=== PATIENT | male | born 2000 | race Caucasian/White ===

== ENCOUNTER 2022-12-24 14:31 | Emergency (ER) | payer MEDICAID, SELFPAY ==
--- NOTE | ~2022-12-24 | XR_ITS ---
EXAMINATION: XR CHEST CLINICAL INFORMATION: Substernal chest pain COMPARISON: None available. TECHNIQUE: 2 views of the chest were obtained. FINDINGS: No significant abnormality is noted involving the heart, lungs, mediastinum, bony thorax or soft tissues. XR/XR chest 2V IMPRESSION: Unremarkable examination.
--- NOTE | 2022-12-24 14:33 | ECG_ITS ---
Test Reason : cp Blood Pressure : / mmHG Vent. Rate : 078 BPM Atrial Rate : 078 BPM P-R Int : 118 ms QRS Dur : 082 ms QT Int : 360 ms P-R-T Axes : 069 078 047 degrees QTc Int : 410 ms Normal sinus rhythm with sinus arrhythmia RSR' or QR pattern in V1 suggests right ventricular conduction delay Nonspecific T wave abnormality Inferior leads Abnormal ECG No previous ECGs available Referred By: Generic ED Physician Electronically Signed By:SYLVAIN ANN MD
[2022-12-24 15:10] VITALS: BP 139/76; PULSE 78; RESP 16; TEMP 37.3; O2SAT 98; BMI 19.5
--- NOTE | 2022-12-24 15:10 | ED_ITS ---
HPI - Chest Pain General Chief Complaint: Chest Pain Stated Complaint: Chest pain Time Seen by Provider: 12/24/22 15:43 Source: patient Mode of arrival: ambulatory Limitations: no limitations History of Present Illness HPI narrative: a 22-year-old male no past significant history came in for evaluation of chest pain. Patient been getting chest pain for a year on and off, patient was treated for anxiety by PCP discontinued Taking the anxiety medication because is not helping his chest pain patient had his typical chest pain this morning went to urgent care sent him to the ED for concern of abnormal EKG. Patient declined any recent travel, no lower extremity swelling or pain. Patient only smoking E-cigarette and marijuana occasionally otherwise declined using any drugs. Related Data Previous Rx's Medication Instructions Recorded levothyroxine 13 mcg capsule 13 mcg PO DAILY #20 caps 12/24/22 Allergies Allergy/AdvReac Type Severity Reaction Status Date / Time cephalexin [From KEFLEX] Allergy Unknown RASH Verified 12/24/22 15:14 Review of Systems 2 Review of Systems: All other systems are reviewed and are negative Constitutional: Reports as per HPI and Reports no additional constitutional complaints Eyes: Reports as per HPI and Reports no additional eye complaints Reports system reviewed and no additional complaints, except as documented Cardiovascular: Reports as per HPI and Reports no additional cardiovascular complaints Respiratory: Reports as per HPI and Reports no additional respiratory complaints Gastrointestinal: Reports as per HPI and Reports no additional gastrointestinal complaints Genitourinary: Reports no additional female genitourinary complaints Musculoskeletal: Reports no additional musculoskeletal complaints Skin/Breast: Reports system reviewed and no additional complaints, except as docu Psychiatric: Reports no additional psychiatric complaints Endocrine: Reports no additional endocrine complaints Hematologic/Lymphatic: Reports no additional hematologic/lymphatic complaints Allergic/Immunologic: Reports no additional allergic/immunologic complaints Reports system reviewed and no additional complaints, except as documented and Reports Abnormal speech present [facility] Social History Social History Advance Directives: No Advance Directives Information Provided: No Physical Exam 2 Vital Signs: Vital Signs: Last Vital Signs Temp 98.4 F 12/24/22 16:20 Pulse 63 12/24/22 16:20 Resp 13 12/24/22 16:20 BP 115/70 12/24/22 16:20 Pulse Ox 97 12/24/22 16:20 O2 Del Method Room Air 12/24/22 16:20 BMI result Body Mass Index 19.5 Vital signs have been reviewed and appear to be correct. Blood pressure elevated. Heart rate normal. Respiratory rate normal. Temperature normal. Oxygen saturation normal. Appearance: Alert. Oriented X3. No acute distress. Head: Normal external exam. Normocephalic. Atraumatic. No Hinton signs noted. No raccoon eyes noted Eyes: PERRLA. EOMI. Conjunctiva and sclera normal. Eyelids normal. ENT: TM's Normal. Pharynx normal. Uvula midline. Moist mucous membranes. No trismus noted. No drooling noted. No muffled voice noted. Neck: Normal inspection. Neck supple. FROM. No adenopathy. Thyroid Normal. No meningeal signs. No neck mass noted. CVS: Normal heart rate and rhythm. Heart sound normal. No murmurs noted. Pulses normal throughout. Respiratory: No respiratory distress. Painless inspiration. Breath sounds normal. No wheezes/rales/rhonchi noted. Chest nontender. No accessory muscle usage noted or decreased air movement noted. Abdomen: Soft and nontender. Bowel sounds normal in all 4 quadrants. No distention noted. No organomegaly noted. No visible injury noted. Back: No CVA tenderness. Full range of motion noted. Skin: Skin warm and dry. Normal skin color. Normal skin turgor. No rashes/lesions/lacerations noted. Extremities: No lower extremity edema. Extremities exhibit normal range of motion. Extremities nontender. Neuro: Oriented X 3. Cranial nerve exam: II-XII are grossly intact No motor deficit. No sensory deficit. Reflexes normal. Course Course Course Narrative: RME: 22yo M w/no sig PMHx c/o chest pain x1 year worsening over the past few months. Admits to similar sx in the past and was thought to be due to Anxiety but was taking meds w/o relief (stopped taking meds about 1.5mos ago). Reports fatigue & substernal chest soreness. Also reports SOB. deneis fever, travel EKG, Labs, CXR ordered Full HPI, ROS and PE to be performed by primary ED provider. Reevaluation(s) Reevaluation #1: 22-year-old male with Chronic chest pain on and off has been evaluated in the past by PCP for this pain. Patient has unremarkable workup today. I will discharge with outpatient follow-up with Dr. Eckert for further evaluation of the chest pain. Elevated TSH and low free T4 indicating for hypothyroidism will start the patient levothyroxine and patient was instructed to follow-up with his PCP. Time: 18:02 Medical Decision Making Differential Diagnosis Differential Diagnoses: The differential diagnosis associated with the presentation includes ( ACS, pneumonia, pneumothorax, pleural effusion, electrolyte abnormality, pulmonary embolism, severe anemia.) Admission/Observation Consideration of admission/observation: Escalation of care including admission/observation considered Lab Data MDM Lab Attestation statement: I reviewed the patient's lab results. 12/24/22 15:29 12/24/22 15:29 Labs: Lab Results 12/24/22 12/24/22 Range/Units 15:29 16:11 WBC 5.2 (4.8-10.8) X10*3/uL RBC 5.25 (4.60-5.80) X10*6/uL Hgb 15.7 (14.0-18.0) g/dl Hct 47.2 (42.0-52.0) % MCV 89.9 (80.0-98.0) fL MCH 29.9 (27.0-33.0) pg MCHC 33.3 (31.0-36.0) g/dl RDW 12.5 (11.0-16.0) % Plt Count 242 (160-400) X10*3/uL MPV 9.0 L (9.4-12.4) fL Immature Gran % (Auto) 0.2 (0.0-0.4) % Neut % (Auto) 57.9 (45-73) % Lymph % (Auto) 33.3 (20-40) % Donley % (Auto) 7.4 (2-11) % Eos % (Auto) 0.4 (0-4) % Baso % (Auto) 0.8 (0-2) % Lymph # (Auto) 1.7 (1.2-4.9) X10*3/uL Donley # (Auto) 0.4 (0.1-1.2) X10*3/uL Eos # (Auto) 0.0 (0.0-0.4) X10*3/uL Baso # (Auto) 0.0 (0.0-0.2) X10*3/uL Abs Immat Gran (auto) 0.01 (0.00-0.03) X10*3/uL Absolute Neuts (auto) 3.0 (2.0-8.3) x10*3/uL Absolute Nucleated RBC 0.000 (0.0-0.012) X10*3/uL Nucleated RBC % (auto) 0.0 (0.0-0.2) /100WBC D-Dimer High Sensitivty < 150 NG/ML Sodium 143 (135-145) mmol/L Potassium 4.3 (3.3-5.1) mmol/L Chloride 104 (96-108) mmol/L Carbon Dioxide 33 H (22-29) mmol/L Anion Gap 10 L (12-20) BUN 9 (9-16) mg/dL Creatinine 0.84 (0.5-1.4) mg/dL Estim Creat Clear Calc 117.0 Estimated GFR > 60 Random Glucose 105 (60-115) mg/dL Calcium 10.4 H (8.4-10.2) mg/dL Total Bilirubin 0.6 (0.0-1.0) mg/dL Direct Bilirubin 0.2 (0.0-0.5) mg/dL AST 21 (5-37) U/L ALT 11 (0-40) U/L Alkaline Phosphatase 55 (39-117) U/L Troponin I High Sens < 2.7 < 2.7 (<3.5-35.0) ng/L Total Protein 7.5 (6.5-8.0) g/dL Albumin 4.9 (3.5-5.0) g/dL TSH 34.71 H (0.32-4.0) uIU/mL Free T4 0.64 L (0.71-1.85) ng/dL COVID-19 (MELISSA) Negative (Negative) COVID-19 Clin Com See Note Influenza Type A (REFUGIO) Negative (Negative) Influenza Type B (REFUGIO) Negative (Negative) Influenza A & B Note See Note Independent Interpretation I performed an independent interpretation of an: EKG ( Normal sinus rhythm with sinus arrhythmia at rate of 78, normal intervals, no ST-T changes.) and Plain X- Ray ( Chest: No acute intrathoracic pathology.) Radiology Impression Discussion of test interpretation with radiology: I have reviewed the radiologist's reading. Discharge Plan Discharge Clinical Impression: Chest pain, Hypothyroidism Patient Disposition: Home, Self-Care Instructions: Chest Pain (ED), Hypothyroidism (ED) Prescriptions: New levothyroxine 13 mcg capsule 13 mcg PO DAILY Qty: 20 0RF Referrals: Rafi Eckert MD [Physician] -
[2022-12-24 15:35] LABS: MANUAL DIFF FLAG NO
[2022-12-24 15:38] VITALS: BP 136/81; PULSE 77; RESP 16; O2SAT 98
[2022-12-24 15:38] LABS: Basophils Percent Auto 0.8 % (0-2); Eosinophils Percent Auto 0.4 % (0-4); Hematocrit 47.2 % (42.0-52.0); Hemoglobin 15.7 g/dl (14.0-18.0); Imm Gran Abs Auto 0.01 X10*3/uL (0.00-0.03); Imm Gran Pct Auto 0.2 % (0.0-0.4); Lymphocytes Absolute Auto 1.7 X10*3/uL (1.2-4.9); Lymphocytes Percent Auto 33.3 % (20-40); Mean Corpuscular HGB Conc 33.3 g/dl (31.0-36.0); Mean Corpuscular Hemoglobin 29.9 pg (27.0-33.0); Mean Corpuscular Volume 89.9 fL (80.0-98.0); Monocytes Absolute Auto 0.4 X10*3/uL (0.1-1.2); Monocytes Percent Auto 7.4 % (2-11); Neutrophils Percent Auto 57.9 % (45-73); Platelet Count 242 X10*3/uL (160-400); Red Blood Count 5.25 X10*6/uL (4.60-5.80); Red Cell Distribution Width 12.5 % (11.0-16.0); White Blood Count 5.2 X10*3/uL (4.8-10.8)
[2022-12-24 15:50] LABS: Alanine Aminotransferase 11 U/L (0-40); Albumin Level 4.9 g/dL (3.5-5.0); Alkaline Phosphatase 55 U/L (39-117); Anion Gap 10 (12-20); Aspartate Amino Transferase 21 U/L (5-37); Bilirubin Direct 0.2 mg/dL (0.0-0.5); Bilirubin Total 0.6 mg/dL (0.0-1.0); Blood Urea Nitrogen 9 mg/dL (9-16); Calcium 10.4 mg/dL (8.4-10.2); Carbon Dioxide 33 mmol/L (22-29); Chloride 104 mmol/L (96-108); Estimated Glomerular Filt Rate > 60; Glucose Random 105 mg/dL (60-115); Potassium 4.3 mmol/L (3.3-5.1); Sodium 143 mmol/L (135-145); Total Protein 7.5 g/dL (6.5-8.0)
[2022-12-24 15:54] LABS: COVID-19 Test Negative (Negative); IDNOW Serial# 58CA691E
[2022-12-24 16:01] LABS: Troponin-I High Sensitivity < 2.7 ng/L (<3.5-35.0)
[2022-12-24 16:08] LABS: IDNOW Serial# 08D9AD1C; Influenza A Negative (Negative); Influenza B2 Negative (Negative)
[2022-12-24 16:11] LABS: TSH reflex Free T4 34.71 uIU/mL (0.32-4.0)
--- NOTE | 2022-12-24 16:12 | PC.NURSE ---
NSR on tele, reports minimal discomfort now, CP usually upon waking up each morning that makes it difficult to get up x1 year. add on labs drawn and sent to lab. \ XR complete, EKG complete
[2022-12-24 16:20] VITALS: BP 115/70; PULSE 63; RESP 13; TEMP 36.9; O2SAT 97
[2022-12-24 16:39] LABS: Troponin-I High Sensitivity < 2.7 ng/L (<3.5-35.0)
[2022-12-24 16:41] LABS: D Dimer High Sensitivity < 150 NG/ML
[2022-12-24 17:03] LABS: Free T4 (Free Thyroxine) 0.64 ng/dL (0.71-1.85)
== END 2022-12-24 17:33 | disposition home or self-care (01) ==
PROVIDERS: Physician Assistant; Emergency Provider Emergency Medicine; PCP Pediatrics
DX: R07.89 Other chest pain (principal); E03.9 Hypothyroidism, unspecified; Z79.899 Other long term (current) drug therapy; Z11.52 Encounter for screening for COVID-19; Z20.822 Contact with and (suspected) exposure to COVID-19
CPT/HCPCS: 36415; 71046; 80048; 80076; 84439; 84443; 84484; 85025; 85379; 87502; 87635; 93005; 99283; 99285

== ENCOUNTER 2023-01-06 12:51 | Outpatient (AMB) | payer MEDICAID, SELFPAY ==
[2023-01-06 12:54] VITALS: BP 130/76; PULSE 65; BMI 20.1
--- NOTE | 2023-01-06 12:54 | A.OFFVIS_ITS ---
Intake Vital Signs 01/06/23 12:54 Height 5 ft 9 in Weight 136 lb 3.931 oz BMI 20.1 BP 130/76 Blood Pressure Location Lt brachial Position Sitting Pulse 65 Pulse Source Pulse Oximeter Intake Visit Reasons: [facility] ed fu/ chest pain Intake Note: Ed fu/ actively having chest pain Assembly Lead Person Required: No Information Interpreted: non-clinical & clinical Accompanied by: Self / Same As Patient Allergies cephalexin [From KEFLEX] Allergy (Unknown, Verified 01/06/23 12:57) RASH Medication List - Last Reconciled 01/06/23 by Chantal Vang NP levothyroxine 12.5 mcg (1/2 x 25 mcg) PO DAILY 20 days HPI HPI Comments History of Present Illness Details 22-year-old male presents today for a ne w patient visit after presenting to the [facility] emergency department on 12/24/22 for chest pain/abnormal EKG. Reports chest pain has been for the last year but worsening the last few months. Work-up in the ED was unremarkable for cardiac concerns. He was found to have hypothyroid and was started on levothyroxine. Past medical history of anxiety and asthma. He reports the chest pain is a pressure and is daily. Worse in the morning with SOB. The pain is in the center of his chest and does not radiate. It worsens with lifting but not with exertion. Denies swelling in his legs or any other associated symptoms with the chest pain. He reports no cardiac history for himself other than palpitations which was ruled to be anxiety in the past. [facility] Social History (Updated 01/06/23 @ 12:59 by Justine Arguelles MA) Alcohol intake: current Alcohol intake frequency: holidays/special occasions only Substance Use Type: Marijuana Review of Systems Const Denies chills, Denies fatigue, Denies fever(s), Denies frequent falls, Denies weakness, Denies weight gain and Denies weight loss ENT Denies dizziness Card Denies chest pain, Denies chest pain with activity, Denies syncope, Denies rapid heart rate, Denies pedal edema, Denies irregular heart rhythm, Denies leg edema, Denies lightheadedness, Denies palpitations, Denies dyspnea, Denies dyspnea on exertion, Denies orthopnea and Denies other (LOC) Resp Denies cough, Denies dyspnea and Denies dyspnea on exertion GI Denies hematochezia and Denies change in bowel habits Musc Denies abnormal gait, Denies arthralgias, Denies muscle weakness, Denies numbness, Denies radiating pain into limb and Denies tingling Neuro Denies abnormal gait, Denies dizziness, Denies syncope, Denies frequent falls, Denies numbness, Denies tingling and Denies weakness Endo Denies fatigue and Denies palpitations Physical Exam Vital Signs: Last Vital Signs Pulse 65 01/06/23 12:54 BP 130/76 01/06/23 12:54 BMI result Body Mass Index 20.1 Const General: healthy appearing and no acute distress Orientation/consciousness: patient oriented x3 HEENT Head: Yes normal to inspection Eyes General: appearance normal, both eyes and all related structures Neck Neck: Yes normal visual inspection Chest Chest palpation & inspection: normal inspection of the chest Resp Effort & Inspection: normal respiratory effort Auscultation: clear to auscultation bilaterally Cardio Jugular venous distension: no JVD Palpation: normal PMI Rate: regular rate Rhythm: regular rhythm Heart sounds: S1 normal heart sound present, S2 normal heart sound present, no click, no gallops, no murmurs and no rubs GI Inspection: Yes normal to inspection Palpation (GI): Soft to palpation Skin General skin exam: no rashes or lesions noted Neuro General: patient oriented x3 Extrem General: Yes normal to inspection Psych Appearance: grossly normal Office Procedures EKG Details: EKG today. Normal Sinus Rhythm. Early repolarization. QTc 398ms. VA 122ms. [id number], Complete Assessment & Plan Assessment & Plan (1) Chest pain: Code(s): R07.9 - Chest pain, unspecified Plan Will get exercise stress test to assess for ischemic changes. ED care if needed Will have him return in 6-8 weeks for results and to meet with Babar Romo. Orders: Orders CA stress test Today R07.9 - Chest pain, unspecified Coding Level of Care Code New Pt Level 3 (66606) Diagnoses Chest pain R07.9 CPT Codes EKG - CPT: 21351-[id number], Complete ([id number])
== END 2023-01-06 13:22 | disposition home or self-care (01) ==
PROVIDERS: PCP Pediatrics; Visit Provider Nurse Practitioner
DX: R07.9 Chest pain, unspecified (principal)
CPT/HCPCS: 93010; 99203

== ENCOUNTER → 2023-01-06 12:51 | Outpatient (BNVA) | payer MEDICAID, SELFPAY | PROVIDERS: PCP Pediatrics; Visit Provider Nurse Practitioner | DX: R07.9 Chest pain, unspecified (principal) | CPT/HCPCS: 93005; 99212 ==

== ENCOUNTER → 2023-01-23 10:26 | Outpatient (REF) | payer MEDICAID, SELFPAY ==
--- NOTE | 2023-01-23 10:28 | CA_ITS ---
Acquisition Time: 2023-01-23 10:33:12 Total Exercise Time: 00:12:22 Test Indications: ABN EKG, CP, SOB Medications: SEE H Protocol: ALESHA Max HR: 181 BPM 91% of Pred: 198 BPM Max BP: 158/070 mmHG Max Work Load: 14.0 METS Exercise stress test exercise 12 min 22 sec of Alesha protocol achieving 91% MPHR, without anginal symptoms, with isolated PACs, with normotensive response to exercise, without EKG changes. Test reviewed with Dr. Patton. Referred By: Chantal Vang Overread By: Chantal Vang
== END ==
LOC: HO.CARD 10:26
PROVIDERS: PCP Pediatrics; Visit Provider Nurse Practitioner
DX: R07.9 Chest pain, unspecified (principal)
CPT/HCPCS: 93017

== ENCOUNTER 2023-01-27 11:47 | Outpatient (REF) | payer MEDICAID, SELFPAY ==
[2023-01-27 15:20] LABS: TSH reflex Free T4 15.49 uIU/mL (0.32-4.0)
== END 2023-01-27 11:48 | disposition home or self-care (01) ==
LOC: HO.CHCLDS 11:47
PROVIDERS: Visit Provider Pediatrics
DX: E03.9 Hypothyroidism, unspecified (principal)
CPT/HCPCS: 36415; 84439; 84443

== ENCOUNTER 2023-06-01 14:06 | Outpatient (REF) | payer MEDICAID, SELFPAY ==
[2023-06-01 17:06] LABS: TSH reflex Free T4 2.53 uIU/mL (0.32-4.0)
== END 2023-06-01 14:07 | disposition home or self-care (01) ==
LOC: HO.HHCL 14:06
PROVIDERS: Visit Provider Student in an Organized Health Care Education/Training Program
DX: E03.9 Hypothyroidism, unspecified (principal)
CPT/HCPCS: 36415; 84443

== ENCOUNTER 2023-06-16 12:01 | Outpatient (REF) | payer MEDICAID, SELFPAY ==
[2023-06-16 15:19] LABS: TSH reflex Free T4 5.69 uIU/mL (0.32-4.0)
[2023-06-16 15:50] LABS: Free T4 (Free Thyroxine) 0.97 ng/dL (0.71-1.85)
[2023-06-16 16:19] LABS: CT PCR NOT DETECTED (Not Detect.); NG PCR NOT DETECTED (Not Detect.)
[2023-06-17 04:23] LABS: HIV AB/AG Nonreactive (Nonreactive); HIV Num 1 0.04 S/CO (0.00-0.99); ~HepC Num1 0.08 S/CO (0.00-0.79); ~Hepatitis C Antibody Nonreactive (Nonreactive)
[2023-06-17 11:14] LABS: RPR Rapid Plasma Reagin NON-REACTIVE (NON-REACTIVE)
== END 2023-06-16 12:02 | disposition home or self-care (01) ==
LOC: HO.CHCLDS 12:01
PROVIDERS: Visit Provider Pediatrics
DX: Z00.00 Encounter for general adult medical examination without abnormal findings (principal); Z11.4 Encounter for screening for human immunodeficiency virus [HIV]; E03.9 Hypothyroidism, unspecified
CPT/HCPCS: 0353U; 36415; 84439; 84443; 86592; 86803; 87389

== ENCOUNTER 2024-01-28 14:38 | Outpatient (REF) | payer MEDICAID, SELFPAY ==
[2024-01-28 18:08] LABS: TSH reflex Free T4 4.44 uIU/mL (0.32-4.0)
[2024-01-28 18:44] LABS: Free T4 (Free Thyroxine) 1.13 ng/dL (0.71-1.85)
== END 2024-01-28 14:39 | disposition home or self-care (01) ==
LOC: HO.CHCLDS 14:38
PROVIDERS: Visit Provider Pediatrics
DX: E03.9 Hypothyroidism, unspecified (principal)
CPT/HCPCS: 36415; 84439; 84443

== ENCOUNTER → 2024-02-11 10:08 | Outpatient (BNVA) | payer OTHER, SELFPAY | PROVIDERS: PCP Pediatrics; Visit Provider Physician Assistant Medical | DX: S93.402A Sprain of unspecified ligament of left ankle, initial encounter (principal); W18.09XA Striking against other object with subsequent fall, initial encounter | CPT/HCPCS: 73610; 99203 ==

== ENCOUNTER → 2024-02-15 11:39 | Outpatient (BNVA) | payer OTHER, SELFPAY | PROVIDERS: PCP Pediatrics; Visit Provider Physician Assistant Medical | DX: S93.492A Sprain of other ligament of left ankle, initial encounter (principal); W18.09XA Striking against other object with subsequent fall, initial encounter | CPT/HCPCS: 99213 ==

== ENCOUNTER → 2024-02-23 11:04 | Outpatient (BNVA) | payer OTHER, SELFPAY | PROVIDERS: PCP Pediatrics; Visit Provider Physician Assistant Medical | DX: S93.402A Sprain of unspecified ligament of left ankle, initial encounter (principal); W01.0XXA Fall on same level from slipping, tripping and stumbling without subsequent striking against object, initial encounter | CPT/HCPCS: 99213 ==

== ENCOUNTER 2024-02-29 11:00 | Outpatient (RCR) | payer OTHER, MEDICAID, SELFPAY ==
--- NOTE | 2024-02-26 09:51 | MHC.PT.EP ---
[facility] [place] Office [place] Office [place] Office [address] Zahida Samuels [address] [phone] F: [phone] F: [phone] F: [phone] F: [phone] Physical Therapy Plan of Care Date of Evaluation: 02/26/24 Date of Surgery: Diagnosis: L ankle sprain. Assessment: Patient is a 23 year old R handed male who presents with s/s consistent with L ankle sprain, pain. He works with daily job demands including [employer]. Patient past medical history is unremarkable and non-contributory. Current impairments include pain, balance, ROM, strength, activity tolerance and functional mobility. Functional limitations include decreased ability to stand, walk, negotiate stairs, pivot and turn. Patient is motivated with good rehab potential. Skilled PT will address impairments and functional limitations in order to achieve goals. 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 Manual therapy to restore motion and function. Therapeutic exercise to improve strength and flexibility. Neuromuscular re-education for posture and balance. Therapeutic activities to return to functional activities of daily living. Electronically signed by: Ming Valentino, PT Please sign and return to therapist. Thank you for your referral.
--- NOTE | 2024-03-23 13:58 | MHC.PT.DC ---
[facility] [place] [facility] [place] Office [place] Office [address] [phone] F: [phone] F: [phone] F: [phone] F: [phone] Physical Therapy Discharge Report Diagnosis: L ankle sprain. Date of Surgery: Date of Evaluation: 02/26/24 Date of Discharge: 03/03/24 Treatments to Date: 2 Cancellations to Date: No Shows to Date: Discharge Status: Improved Function Independent with HEP Discharge Summary: Pt called back to say he was doing well and would like to d/c. 02/29/24: pt progressing well with skilled PT. continue to progress as tolerated with flex, ROM, strength and function. Patient is a 23 year old R handed male who presents with s/s consistent with L ankle sprain, pain. He works with daily job demands including [employer]. Patient past medical history is unremarkable and non-contributory. Current impairments include pain, balance, ROM, strength, activity tolerance and functional mobility. Functional limitations include decreased ability to stand, walk, negotiate stairs, pivot and turn. Patient is motivated with good rehab potential. Skilled PT will address impairments and functional limitations in order to achieve goals. Electronically signed by: Ming Valentino, PT Please sign and return to therapist. Thank you for your referral.
== END 2024-03-23 13:59 | disposition home or self-care (01) ==
LOC: HO.PTCHIC 11:00
PROVIDERS: PCP Pediatrics; Visit Provider Physician Assistant Medical
DX: S93.402A Sprain of unspecified ligament of left ankle, initial encounter (principal)
CPT/HCPCS: 97110; 97112; 97161

== ENCOUNTER → 2024-03-03 11:18 | Outpatient (BNVA) | payer OTHER, SELFPAY | PROVIDERS: PCP Pediatrics; Visit Provider Physician Assistant Medical | DX: S93.402A Sprain of unspecified ligament of left ankle, initial encounter (principal); W18.09XA Striking against other object with subsequent fall, initial encounter; Z02.79 Encounter for issue of other medical certificate | CPT/HCPCS: 99213 ==

== ENCOUNTER 2024-04-21 11:54 | Outpatient (REF) | payer OTHER, SELFPAY ==
[2024-04-21 15:08] LABS: TSH reflex Free T4 7.85 uIU/mL (0.32-4.0)
--- OUTSIDE RECORDS SUMMARY | 2024-04-21 15:24 | XMS_ITS | Encounter Summary ---
Author Organization [employer] Address [address] [facility] 7 [place] [address] Care Team Providers Care Steel Hanger Name Role Phone Magalys Frankel MD Primary Care Provider [phone] Reason for Visit * Reason Onset Date Comments Nurse Triage 04/21/2024 Encounter Details Date Type Department Care Team ([facility] st Contact Info) Description 04/21/2024 Telephone [facility] [address] [place] [address] Magalys Frankel MD [address] [place], [place] [id number] Nurse Triage Social History Tobacco Use Types Packs/Day Years Used Date Smoking Tobacco: Never Passive Smoke Exposure: Never Smokeless Tobacco: Never Depression Answer Date Recorded Patient Health Questionnaire-9 Score 1 03/13/2022 Housing Stability Answer Date Recorded What is your housing situation today? I have chris monzon 12/15/[address] you li ve. Do you have problems with any of the following? None of the above 12/15/2022 Food Insecurity Answer Date Recorded Within the past 12 months, y ou worried that your food would run out before you got money to buy more: Never True 12/15/2022 Within the past 12 months,th e food you bought just didn't last and you didn't have enough money to get more: Never True 07/2022 Transportation Answer Date Recorded In the past 12 months, has l ack of transportation kept you from medical appts, meetings, work or from getting things needed for daily living? No 12/15/2022 Utilities Answer Date Recorded In the past 12 months, has t he [employer], [employer], oil or water [email or web address] threatened to shut off services in your home? No 12/15/2022 Depression Answer Date Recorded Patient Health Questionnaire-2 Score 0 03/13/2022 Sex and Gender Information Value Date Recorded Sex Assigned at Male 12/09/2021 10:16 AM EDT Legal Sex Male 10:16 AM EDT Gender Identity Male 12/09/2021 10:16 AM EDT Sexual Orientation Straight 12/09/2021 10 :16 AM EDT documented as of this encounter Miscellaneous Notes * Telephone Encounter - Shelbi Persaud LPN - 04/21/2024 10:47 AM EDT Triage call returned to patient who reports worsening fatigue over last several days. Leaves work and goes home straight to bed. Out of character per patient. Patient made aware of labs ordered to follow in February for hypothyroid. Reports med compliant. Will come today to obtain updated labs. No other reported sick symptoms. Disposition reviewed and patient in agreement with plan. Protocol Used: Weakness (Generalized) and Fatigue (Adult) Protocol-Based Disposition: See in Office or Video Visit within 3 Days Override (Final) Disposition: Home Care Override Reason: Other Override Notes: Will obtain outstanding labs with MD to follow with him when labs posted. Video visit not offered Positive Triage Question: * Fatigue (i.e., tires easily, decreased energy) and persists > 1 week * All higher-acuity triage questions were negative * Telephone Encounter - Clarisa Wallis - 04/21/2024 10:39 AM EDT Symptom: Lethargic (Tired) Outcome: Schedule an urgent appointment (within 4 hours) or talk to a nurse or provider soon Reason: Getting worse The caller accepted this outcome. [phone] documented in this encounter Plan of Treatment Not on file documented as of this encounter Visit Diagnoses Not on filedocumented in this encounter Additional Health Concerns Assessment Noted Time PHQ-9 Depression Total Score: 1 02/02/20 23 10:28 AM EST documented as of this encounter Care Teams Steel Hanger Relationship Specialty Start Date End Date Magalys Frankel MD [address] [place] [id number] PCP - General Family Medicine 02/16/13 documented as of this encounter
--- OUTSIDE RECORDS SUMMARY | 2024-04-21 15:24 | XMS_ITS | Encounter Summary ---
Author Organization [employer] Address [address] [facility] [address] [place] [address] Care Team Providers Care Director [employer] Name Role Phone Magalys Frankel MD Primary Care Provider [phone] Encounter Details Date Type Department Care Team ([facility] st Contact Info) Description 12/25/2022 Telephone [facility] MED & PEDS [address] [place], [place] [id number] Mari Brooks, KIRK [address] [place] [address] Social History Tobacco Use Types Packs/Day Years Used Date Smoking Tobacco: Never Smokeless Tobacco: Never Depression Answer Date [...] the past 12 months, has t he electric, gas, oil or water company threatened to shut off services in your [...] encounter Miscellaneous Notes * Telephone Encounter - Mari Brooks RN - 12/25/2022 2:11 PM EST called pt to triage, spoke to pt. pt states seen [facility] on 12/24 and diagnosed with hypothyroid. ptstates given Levothyroxine prescription, however his insurance denied and needs a prior authorization. pt states intermittent chest discomfort, cold intolerance, and a lot of fatigue. pt denies current severe symptoms. given first available appt with PCP on Saturday 12/30, at 11:15 for exam and follow up. will task to clinical coordinator pool to obtain ER records. will also task to team nurses tofollow up with PCP for prior authorization before appt if possible. advised home care: rest, fluids, good nutrition, and call back if worsening or new concerns. pt understands and agrees with plan. in surance verified. Protocol Used: Weakness (Generalized) and Fatigue (Adult) Protocol-Based Disposition: See in Office or Video Visit within 3 Days Video visit offer not recorded Positive Triage Question: * Fatigue (i.e., tires easily, decreased energy) and persists > 1 week * All higher-acuity triage questions were negative Care Advice Discussed: * Reassurance and Education - Mild Fatigue or Weakness * Reasons To Call Back - You become worse * Telephone Encounter - Curtis Sanchez - 12/25/2022 1:55 PM EST Tc from pt returning call. Please contact at [phone] * Telephone Encounter - Mari Brooks RN - 12/25/2022 9:46 AM EST Called pt to triage for ER follow up for Hyperthroidism, unable to reach x2. Will task to [facility] team to follow up and schedule with PCP as needed. documented in this encounter Plan of Treatment Not on file documented as of this encounter Visit Diagnoses Not on filedocumented in this encounter Additional Health Concerns Assessment Noted Time PHQ-9 Depression Total Score: 1 03/13/19 10:28 AM EST documented as of this encounter Care Teams Director [employer]gen Storage Engineering Relationship Specialty Start Date End Date Magalys Frankel MD [address] [place] [id number] PCP - General Family Medicine 02/16/13 documented as of this encounter
--- OUTSIDE RECORDS SUMMARY | 2024-04-21 15:24 | XMS_ITS | Clinical Summary ---
Author Organization [employer] Address [address] [place] [address] 7 [place] [address] Care Team Providers Care Dredge Runner Name Role Phone Magalys Frankel MD Primary Care Provider [phone] Allergies Active Allergy Reactions Criticality Noted Date Comments Cephalexin Rash Low 10/27/2011 Medications hydrOXYzine pamoate (Vistaril) 25 MG capsule Take 1 capsule orally tid prn anxiety 30 capsule 3 4 Active levothyroxine (Synthroid, Levoxyl) 25 MCG tabletIndication s:Hypothyroidism , unspecified type TAKE 1 TABLET BY MOUTH EVERY DAY IN THE MORNING BEFORE BREAKFAST ON AN EMPTY STOMACH. 90 tablet 5 Active Active Problems Problem Noted Date Diagnosed Date Adjustment disorder with anxious mood 09/26/2020 Encounters Date Type Department Care Team Description 04/21/2024 Telephone [facility] [address] [place] [phone] Magalys Frankel MD Nurse Triage 02/11/2024 11:15 AM EST Telemedicine [facility] [address] [place] [address] Magalys Frankel MD Hypothyroidism, unspecified type (Primary Dx) 02/11/2024 Travel 02/10/2024 Travel 01/29/2024 Telephone [facility] [address] [place] [address] Magalys Frankel MD Results 01/28/2024 Orders Only [facility] [address] [place] [address] Magalys Frankel MD from Last 3 Months Immunizations Name Administration Dates Next Due DTaP 12/23/2004, 2,02/18/2001,12/07,2000 HPV 9-Valent 01/25/2015 HPV, Quadrivalent 01/05/2012,10/27/2011 Hep A, ped/adol, 2 dose 08/26/2016,01/25/2015 Hep B, Adolescent or Pediatric 02/18/2001,2000,2000 Hib (HbOC) 11/29/2001, 2,2000,10/08 Influenza injectable quadriv alent preservative free 01/28/2020,12/29/2018,11/05/2017 Influenza live intranasal qu adrivalent LIAV4 01/25/2015,01/02/2014 Influenza, Split (incl. clive fied surface antigen) 10/27/2011 Influenza, live, intranasal 12/30/2012 MMR 12/23/2004,08/26/2001 Meningococcal MCV4P ACYW-135 08/26/2016,10/27/19 12 Moderna Covid-19 Vaccine 12+ 06/16/2020 OPV 12/23/2004, 2,2000,10/08 Pfizer Covid-19 Vaccine 12+ 07/14/2020 Pneumococcal Conjugate PCV 7 07/18/2002, 02/18/2001,2000,10/08 Rabies Immune Globulin 09/30/2010 Rabies, IM Diploid Cell Culture 10/15/19 11,10/07/2010,10/03/2010,09/30 Tdap 10/27/2011 Varicella 11/30/2006,08/26/2001 Social History Tobacco Use Types Packs/Day Years Used Date Smoking Tobacco: Never Passive Smoke Exposure: Never Smokeless Tobacco: Never Tobacco Cessation:Counseling Given: Not Answered Depression Answer Date Recorded Patient Health Questionnaire-9 [...] Orientation Straight 12/09/2021 10 :16 AM EDT Last Filed Vital Signs Vital Sign Reading Time Taken Comments Blood Pressure 124/83 06/16/2023 11:27 AM EDT Pulse 73 06/16/2023 11:27 AM EDT Temperature 36.4 ??C (97.6 ??F) 06/16/2023 11:27 AM E DT Respiratory Rate 16 06/16/2023 11:27 AM EDT Oxygen Saturation 97% 06/16/2023 11:27 AM EDT Inhaled Oxygen Concentration - - Weight 58.5 kg (129 lb) 06/16/2023 11:27 AM EDT Height 177.8 cm (5' 10 ) 06/16/2023 11:27 AM EDT Body Mass Index 18.51 06/16/2023 11:27 AM EDT Plan of Treatment Health Maintenance Due Date Last Done Comments Alcohol/Substance Use Screening 2012 Family Planning (PISQ) 08/05/2015 Pneumococcal Vaccine: Pediatrics (0 to 5 Years) and At-Risk Patients (6 to 49) Years) (1 of 2 - PCV) 08/05/2019 07/18/2002, 02/18/2001, 2000, Additional history exists DTaP/Tdap/Td Vaccines (7 - Td or Tdap) 10/26/2021 10/27/2011, 12/23/2004, 01/31/2002, Additional history exists Depression Screening 03/13/2023 03/13/2022, 03/13/19 23 SDOH Screening 03/13/2023 03/13/2022 COVID-19 Vaccine ( season) 2023 07/14/2020, 06/16/2020 Influenza Vaccine (#1) 2023 , 12/29/2018, 11/05/2017, Additional history exists Chlamydia and Gonorrhea Screening 06/15/2024 06/16/2023, 08/15/2021 Tobacco Screening 02/10/2025 02/11/2024 Zoster Vaccines (1 of 2) 2050 RSV Patients and Patients Aged 60 years or older (1 - 1-dose 75+ series) 08/05/2075 Hepatitis B Vaccines Completed 02/18/2001, 2000, 2000 HIB Vaccines Completed 11/29/2001, 02/09, 2000, Additional history exists IPV Vaccines Completed 12/23/2004, 05/11, 2000, Additional history exists HPV Vaccines Completed 01/25/2015, 12/11, 10/27/2011 Hepatitis A Vaccines Completed 08/26/2016, 01/26/20 15 Meningococcal Vaccine Completed 08/26/2016, 012 HIV Screening Completed 06/16/2023, 08/15/2021 Hepatitis C Screening Completed 06/16/2023 RSV under 20 months Aged Out No longe r eligible based on patient's age to complete this topic Rotavirus Vaccines Aged Out No longer eligible based on patient's age to complete this topic Procedures Procedure Name Priority Date/Time Associated Diagnosis Comments TSH W/REFLEX TO FT4 Routine 04/21/2024 1 1:53 AM EDT Hypothyroidism, unspecified type XR ANKLE 3+ VIEWS LEFT Routine 02/11/2024 11:05 AM EST T4, FREE Routine 01/28/2024 2:40 PM EST TSH W/REFLEX TO FT4 Routine 01/28/2024 2 :40 PM EST Hypothyroidism, unspecified type CHLAMYDIA/N. GONORRHOEAE RNA, TMA, UROGENITAL Routine 06/16/2023 12:10 PM EDT Hypothyroidism, unspecified type Encounter for routine child health examination w/o abnormal findings HEPATITIS C AB W/REFL TO HCV RNA, QN, PCR Routine 06/16/2023 12:04 PM EDT Hypothyroidism, unspecified type Encounter for routine child health examination w/o abnormal findings HIV 1/2 ANTIGEN/ANTIBODY, FOURTH GENERATION W/RFL Routine 06/16/2023 12:04 PM EDT Hypothyroidism, unspecified type Encounter for routine child health examination w/o abnormal findings from Last 3 Months or Most Recently Relevant to Health Maintenance Results * (ABNORMAL) TSH W/Reflex to FT4 (04/21/2024 11:53 AM EDT) Only the most recent of2 resultswithin the time period is included. TSH reflex Free T4 7.85(H) 0.32 - 4.0 uIU/mL [facility] Blood Venous blood specimen / Unknown 04/21/2024 11:53 AM EDT 04/21/2024 2:13 PM EDT us Magalys Frankel MD LAB BLOOD ORDERABLES Final Re sult [facility] [address] [place] [phone] * XR Ankle 3+ Views Left (02/11/2024 11:05 AM EST) Anatomical Region Laterality Modality Lower Extremities, Ankle Left Radiogr aphic Imaging 02/11/2024 11:0 5 AM EST Narrative 02/11/2024 1:12 PM EST ? [facility] ?[address] ?[place] [address] ?XRay Report ? Signed ? Patient: Bhat,Episcopalian ?MR#: [id number] ?? [id number] ? : 2000 ?Acct:[id number] ? Age/Sex: 23 / M ?ADM Date: 02/11/24 ? Loc: HO.WC ? Attending Dr: Beata Daily PA-C ? Ordering Physician: Beata Daily PA-C ?? Date of Service: 02/11/24 ?? Procedure(s): XR ankle LT min 3V ?? Accession Number(s): [id number] ? cc: Magalys Frankel MD; Beata Daily PA-C ? EXAMINATION: ?? XR ANKLE, LEFT ? CLINICAL INFORMATION: ?? sprain ? COMPARISON: ?? None available. ? TECHNIQUE: ?? AP, lateral, and mortise views of the left ankle. ? FINDINGS: ?? No fracture. Alignment is anatomic. No erosions. Joint spaces are ?? maintained. There is minimal lateral ankle soft tissue swelling. ? XR/XR ankle LT min 3V ?? IMPRESSION: ?? Minimal lateral ankle soft tissue swelling. No visible acute fracture ?? or dislocation seen. ? Electronically signed by: ??Kostas Tobin MD ??02/11/2024 01:09 PM EST RP ? Dictated By: ?Kostas Tobin MD ? Signed By: ?<Electronically signed by Kostas Tobin MD in OV> ?02/11/24 1309 ? DD/ 1105 ? TD/TT: 02/11/24 1115 ? Intensive Care Unit Nurse: MSM ? Procedure Note Nadine Lawson - 02/11/[address] [address] XRay Report Signed Patient: Allen BhatMR#: [id number] : 2000Acct:[id number] Age/Sex: 23 / MADM Date: 02/11/24 Loc: [facility] Attending Dr: Beata Daily PA-C Ordering Physician: Beata Daily PA-C Date of Service: 02/11/24 Procedure(s): XR ankle LT min 3V Accession Number(s): [id number] cc: Magalys Frankel MD; Beata Daily-Lorena EXAMINATION: XR ANKLE, LEFT CLINICAL INFORMATION: sprain COMPARISON: None available. TECHNIQUE: AP, lateral, and mortise views of the left ankle. FINDINGS: No fracture. Alignment is anatomic. No erosions. Joint spaces are maintained. There is minimal lateral ankle soft tissue swelling. XR/XR ankle LT min 3V IMPRESSION: Minimal lateral ankle soft tissue swelling. No visible acute fracture or dislocation seen. Electronically signed by: Kostas Tobin MD 02/11/2024 01:09 PM EST RP Dictated By: Kostas Tobin MD Signed By: <Electronically signed by Kostas Tobin MD in OV> 02/11/24 1309 DD/ 1105 TD/TT: 02/11/24 1115 Intensive Care Unit Nurse: [facility] External Provider IMG XR PROCEDURES Edited Result - Final * T4, Free (01/28/2024 2:40 PM EST) [facility] Free T4 (Free Thyroxine) 1.13 0.71 - 1.85 ng/dL [facility] 01/28/2024 2:40 PM EST 01/28/2024 5:23 PM EST Magalys Frankel MD LAB BLOOD ORDERABLES Final Re sult [facility] [address] [place] [phone] * Chlamydia/N. Gonorrhoeae RNA, TMA, Urogenitial (06/16/2023 12:10 PM EDT) Pathologist [facility] CT PCR NOT DETECTED Not Detect. [facility] Comment:A not detected test result does not exclude the possibilityof infection because test results can be affected byimproper specimen collection, concurrent antibiotic therapy,or the number of organisms in the specimen which may bebelow the sensitivity of the test. As with many diagnostictests, results from the Xpert CT/NG assay should beinterpreted in conjunction with other laboratory andclinical data available to the clinician.Xpert CT/NG performance has not been evaluated in patientsless than 14 years of age. The assay should not be used forthe evaluationof suspected sexual abuse or for other medico-legalindications. Additional testing is recommended in anycircumstance when false positive or false negative resultscould lead to adverse medical, social or psychologicalconsequences. NG PCR NOT DETECTED Not Detect. [facility] Comment:A not detected test result does not exclude the possibilityof infection because test results can be affected byimproper specimen collection, concurrent antibiotic therapy,or the number of organisms in the specimen which may bebelow the sensitivity of the test. As with many diagnostictests, results from the Xpert CT/NG assay should beinterpreted in conjunction with other laboratory andclinical data available to the clinician.Xpert CT/NG performance has not been evaluated in patientsless than 14 years of age. The assay should not be used forthe evaluationof suspected sexual abuse or for other medico-legalindications. Additional testing is recommended in anycircumstance when false positive or false negative resultscould lead to adverse medical, social or psychologicalconsequences. Urine (Urine, Random) 06/16/2023 12:10 PM EDT 06/16/2023 2:40 PM EDT Narrative [facility] - 06/16/2023 4:19 PM EDT Urine us Magalys Frankel MD LAB MICROBIOLOGY - GENERAL OR DERABLES Final Result [facility] [address] [place] [phone] [phone] * Hepatitis C Antibody with Reflex to HCV, RNA, Quantitative, Real-Time PCR (06/16/2023 12:04 PM EDT) Hepatitis C Antibody Nonreactive Nonreactive [facility] Comment:Antibodies to HCV no t detected; does not exclude early acuteHCV infection. Blood Venous blood specimen / Unknown 06/16/2023 12:04 PM EDT 06/16/2023 2:19 PM EDT us Magalys Frankel MD LAB BLOOD ORDERABLES Final Re sult Performing Organization Address [facility] Co de Phone Number [facility] [address] [place] [address] [phone] * HIV-1/2 Antigen and Antibodies, Fourth Generation, with Reflexes (06/16/2023 12:04 PM EDT) [facility] HIV AB/AG Nonreactive Nonreactive [facility] Comment:HIV-1 p24 Ag and/or HIV-1/HIV-2 Ab not detected.A test result that is nonreactive does not exclude thepossibility of exposure to or infection with HIV-1 and/orHIV-2. Nonreactive results in this assay for individualswith prior exposure to HIV-1 and/or HIV-2 may be due toantigen and antibody levels that are below the limit ofdetection of this assay.The [employer] HIV Ag/Ab Combo assay result andsupplemental assay results should be interpreted inconjunction with the patient's clinical presentation,history and other laboratory results. If the results areinconsistent with clinical evidence, additional testing issuggested to confirm the result. Blood Venous blood specimen / Unknown 06/16/2023 12:04 PM EDT 06/16/2023 2:19 PM EDT us Magalys Frankel MD LAB BLOOD ORDERABLES Final Re sult Performing Organization Address [facility]/ZIP Co de Phone Number [facility] [address] [place] [address] [phone] from Last 3 Months or Most Recently Relevant to Health Maintenance Insurance [facility] C3 Care Teams Dredge Runner Relationship Specialty Start Date End Date Magalys Frankel MD [address] [place] [phone] PCP - General Family Medicine 02/16/13
--- OUTSIDE RECORDS SUMMARY | 2024-04-21 15:24 | XMS_ITS | Encounter Summary ---
Author Organization [employer] Address [address] [facility] 7 [place] [address] Care Team Providers Care Tool Adjuster Name Role Phone Magalys Frankel MD Primary Care Provider [phone] Reason for Visit * Reason Onset Date Comments Nurse Triage 09/29/2023 Encounter Details Date Type Department Care Team ([facility] st Contact Info) Description 09/29/2023 Telephone [facility] [address] [place] [address] Magalys Frankel MD [address] [place], [place] [phone] Nurse Triage Social History Tobacco Use Types [...] t he electric, gas, oil or water [employer] threatened to shut off services in your [...] encounter Miscellaneous Notes * Telephone Encounter - Agustina Metcalf RN - 09/29/2023 3:15 PM EDT Triage call Pt reports fatigue for over a month now. Pt continues to take thyroid medication levothyroxine 25mcg daily. Pt reports light headedness at times as well. sometimes I feel like I'm going to pass out . Pt is not drinking adequate liquids and is encouraged to drink 6-8 glasses liquid daily to reduce fatigue. Pt will try. ASK apt with Dr. Gonsalez 10/06/23 @ 1100am. Insurance is verified as active prior to booking. Protocol Used: Weakness (Generalized) and Fatigue (Adult) Protocol-Based Disposition: See in Office or Video Visit within 2 Weeks Positive Triage Question: * Fatigue is a chronic symptom (recurrent or ongoing AND present > 4 weeks) * All higher-acuity triage questions were negative Care Advice Discussed: * Reasons To Call Back - Unable to stand or walk - Passes out - Breathing difficulty occurs - You become worse * Drink Fluids * Telephone Encounter - Red Moreland - 09/29/2023 2:42 PM EDT Tc from patient returning call in regards to message below * Telephone Encounter - Curtis Sanchez - 09/29/2023 2:17 PM EDT Symptoms: Lethargic (Tired), Weakness Outcome: Transfer to a nurse or provider NOW! Reason: Hard to wake up documented in this encounter Plan of Treatment Not on file documented as of this encounter Visit Diagnoses Not on filedocumented in this encounter Additional Health Concerns Assessment Noted Time PHQ-9 Depression Total Score: 1 03/13/19 23 10:28 AM EST documented as of this encounter Care Teams Tool Adjuster Relationship Specialty Start Date End Date Magalys Frankel MD [address] [place] [phone] PCP - General Family Medicine 02/16/13 documented as of this encounter
--- OUTSIDE RECORDS SUMMARY | 2024-04-21 15:24 | XMS_ITS | Encounter Summary ---
Author Organization [employer] Address [address] [facility] [address] [place] [address] Care Team Providers Care Slab Installer Name Role Phone Magalys Frankel MD Primary Care Provider [phone] Reason for Visit * Reason Comments Med Change Request Encounter Details Date Type Department Care Team ([facility] st Contact Info) Description 06/02/2023 Refill [facility] [address] [place] [address] Magalys Frankel MD [address] [place], [place] [phone] Social History Tobacco Use Types Packs/Day Years [...] AM EDT documented as of this encounter Plan of Treatment Not on file documented as of this encounter Visit Diagnoses Not on filedocumented in this encounter Additional Health Concerns Assessment Noted Time PHQ-9 Depression Total Score: 1 03/13/19 23 10:28 AM EST documented as of this encounter Care Teams Slab Installer Relationship Specialty Start Date End Date Magalys Frankel MD [address] [place] [address] PCP - General Family Medicine 02/16/13 documented as of this encounter
[2024-04-21 16:34] LABS: Free T4 (Free Thyroxine) 0.86 ng/dL (0.71-1.85)
[2024-04-22 06:33] LABS: Triiodothyronine T3 Total 113 ng/dL (76-181)
== END 2024-04-21 11:55 | disposition home or self-care (01) ==
LOC: HO.CHCLDS 11:54
PROVIDERS: Visit Provider Pediatrics
DX: E03.9 Hypothyroidism, unspecified (principal)
CPT/HCPCS: 36415; 84439; 84443; 84480

== ENCOUNTER 2024-10-18 11:56 | Outpatient (REF) | payer MEDICAID, SELFPAY ==
--- OUTSIDE RECORDS SUMMARY | 2024-10-18 11:30 | XMS_ITS | Encounter Summary ---
Author Organization [employer] Address [address] [facility] [address] [place] [address] Care Team Providers Care Nip Wrapper Name Role Phone Magalys Frankel MD Primary Care Provider [phone] Encounter Details Date Type Department Care Team ([facility] st Contact Info) Description 10/18/2024 11:30 AM EDT Office Visit [facility] [address], [place] [id number] Magalys Frankel MD [address] [place] [phone] Hypothyroidism, unspecified type (Primary Dx); Chronic pain of both knees; Adjustment disorder with anxious mood; Reduced visual acuity Social History Tobacco Use Types Packs/Day Years Used Date Smoking Tobacco: Never Passive Smoke Exposure: Never Smokeless Tobacco: Never Depression Answer Date Recorded Patient Health Questionnaire-9 Score 8 10/18/2024 Patient Health Questionnaire-9 Score 8 10/18/2024 Last PHQ-9: Questionnaire Data Not on file 0 10/18/2024 Housing Stability Answer Date Recorded What is your housing situation today? I have chrisamauri monzon 10/18/[address] you li ve. Do you have problems with any of the following? None of the above 10/18/2024 Food Insecurity Answer Date Recorded Within the past 12 months, y ou worried that your food would run out before you got money to buy more: Never True 10/18/2024 Within the past 12 months,th e food you bought just didn't last and you didn't have enough money to get more: Never True 10/2024 Transportation Answer Date Recorded In the past 12 months, has l ack of transportation kept you from medical appts, meetings, work or from getting things needed for daily living? No 10/18/2024 Utilities Answer Date Recorded In the past 12 months, has t he electric, gas, oil or water company threatened to shut off services in your home? No 10/18/2024 Depression Answer Date Recorded Patient Health Questionnaire-2 Score 0 10/18/2024 Internet Access Answer Date Recorded Internet Access Q1 Yes 10/18/2024 Internet Access Q2 Not on file 10/18/2024 Sex and Gender Information Value Date Recorded Sex Assigned at Male 12/09/2021 10:16 AM EDT Legal Sex Male 10:16 AM EDT Gender Identity Male 12/09/2021 10:16 AM EDT Sexual Orientation Straight 12/09/2021 10 :16 AM EDT documented as of this encounter Last Filed Vital Signs Vital Sign Reading Time Taken Comments Blood Pressure 134/80 10/18/2024 11:25 AM EDT Pulse 62 10/18/2024 11:25 AM EDT Temperature 36.4 C (97.6 F) 10/18/2024 11:25 AM EDT Respiratory Rate 16 10/18/2024 11:25 AM EDT Oxygen Saturation - - Inhaled Oxygen Concentration - - Weight 62.1 kg (137 lb) 10/18/2024 11:25 AM EDT Height - - Body Mass Index 19.66 06/16/2023 11:27 AM EDT documented in this encounter Functional Status * Over the past 2 weeks, how often have you been bothered by any of the following problems? Question Answer Date of Assessment Author Patient Health Questionnaire -2 Score 0 10/18/2024 11:25 AM EDT Jay Sanchez MA * Little interest or pleasure in doing things Answer Date of Assessment Author Not at all 10/18/2024 11:25 AM EDT Camila Sibley MA * Feeling down, depressed, or hopeless Answer Date of Assessment Author Not at all 10/18/2024 11:25 AM EDT Camila Siblye MA * Trouble falling or staying asleep, or sleeping too much Answer Date of Assessment Author Not at all 10/18/2024 11:25 AM EDT Camila Sibley MA * Feeling tired or having little energy Answer Date of Assessment Author Nearly every day 10/18/2024 11:25 AM EDT Camila Heard MA * Poor appetite or overeating Answer Date of Assessment Author More than half the days 10/18/2024 11:25 AM EDT Camila Sanchez MA * Feeling bad about yourself - or that you are a failure or have let yourself or your family down Answer Date of Assessment Author Not at all 10/18/2024 11:25 AM EDT Camila Sibley MA * Trouble concentrating on things, such as reading the newspaper or watching television Answer Date of Assessment Author Not at all 10/18/2024 11:25 AM EDT Camila Sibley MA * Moving or speaking so slowly that other people could have noticed? Or the opposite - being so fidgety or restless that you have been moving around a lot more than usual. Answer Date of Assessment Author Nearly every day 10/18/2024 11:25 AM EDT Camila Heard MA * Thoughts that you would be better off or hurting yourself in some way Answer Date of Assessment Author Not at all 10/18/2024 11:25 AM Camila [place] MA * Patient Health Questionnaire-9 Score Answer Date of Assessment Author 8 10/18/2024 11:25 AM EDT Camila Sibley MA * How difficult have these problems made it for you to do your work, take care of things at home, or get along with other people? Answer Date of Assessment Author Extremely difficult 10/18/2024 11:25 AM EDT Camila Mora MA documented as of this encounter Progress Notes * Magalys Frankel MD - 10/18/2024 11:30 AM EDT Subjective Patient ID: Allen Bhat is a 24 y.o. male who presents for follow-up. Anabaptism is a 24-year-old well-known male patient of mine with past medical history of anxiety well-controlled with behavioral therapy only and hypothyroidism currently on 50 mcg daily of levothyroxine. Patient is here for repeat TFTs. States sees counselor every 2 weeks. Not taking hydroxyzine as needed any longer for anxiety. He currently lives in [place] with the mother of his 2-week-old daughter. He is currently on paternity leave and looks very healthy. No new complaints except for occasional bilateral knee pains that happens mostly in the morning. Patient is requesting a chiropractorreferral to evaluate his back as he is walking and standing at his job a lot and feels he needs an adjustment. Review of Systems Constitutional: Negative for activity change, chills, fever and unexpected weight change. Respiratory: Negative for cough, shortness of breath and wheezing. Cardiovascular: Negative for chest pain, palpitations and leg swelling. Gastrointestinal: Negative for abdominal pain and blood in stool. Endocrine: Negative for polydipsia and polyuria. Genitourinary: Negative for decreased urine volume, difficulty urinating, dysuria and hematuria. Musculoskeletal: Positive for arthralgias and back pain. Negative for gait problem. Skin: Negative for color change and rash. Neurological: Negative for dizziness and headaches. Hematological: Negative for adenopathy. Psychiatric/Behavioral: Negative for dysphoric mood, hallucinations, sleep disturbance and suicidalideas. The patient is not nervous/anxious. Objective BP 134/80 (BP Location: Left arm, Patient Position: Sitting, BP Cuff Size: Adult) Pulse62 Temp 97.6 ??F (36.4 ??C) (Oral) Resp 16 Wt 137 lb (62.1 kg) BMI 19.66 kg/m?? Physical Exam Vitals reviewed. Constitutional: General: He is not in acute distress. Appearance: Normal appearance. He is normal weight. HENT: Head: Normocephalic. Mouth/Throat: Mouth: Mucous membranes are moist. Eyes: Pupils: Pupils are equal, round, and reactive to light. Cardiovascular: Rate and Rhythm: Normal rate and regular rhythm. Heart sounds: Normal heart sounds. No murmur heard. Pulmonary: Effort: Pulmonary effort is normal. No respiratory distress. Breath sounds: Normal breath sounds. Abdominal: Palpations: Abdomen is soft. Musculoskeletal: General: No swelling. Normal range of motion. Right knee: No swelling, effusion or erythema. Normal range of motion. Left knee: No swelling, effusion or erythema. Normal range of motion. Right lower leg: No edema. Left lower leg: No edema. Skin: Findings: No rash. Neurological: Mental Status: He is oriented to person, place, and time. Mental status is at baseline. Psychiatric: Mood and Affect: Mood normal. Behavior: Behavior normal. Thought Content: Thought content normal. Judgment: Judgment normal. Assessment/Plan Diagnoses and all orders for this visit: Hypothyroidism, unspecified type Comments: Currently on 50 mcg levothyroxine daily. Recheck TFTs today and adjust dosage if needed. Will message patient through [employer] nancy. Orders: - CBC auto differential; Future - Hepatic Function Panel; Future - Vitamin D, 25-Hydroxy, Total, Immunoassay; Future - Vitamin B12/Folate, Serum Panel; Future - TSH W/Reflex to FT4; Future - Uric acid; Future - Sed Rate by Modified Westergren; Future - C-reactive Protein; Future - Basic Metabolic Panel, Fasting; Future Chronic pain of both knees Comments: Most likely early DJD from standing job. Check labs today call with results. Pain is mild and mostly in the morning. Orders: - CBC auto differential; Future - Hepatic Function Panel; Future - Vitamin D, 25-Hydroxy, Total, Immunoassay; Future - Vitamin B12/Folate, Serum Panel; Future - TSH W/Reflex to FT4; Future - Uric acid; Future - Sed Rate by Modified Westergren; Future - C-reactive Protein; Future - Basic Metabolic Panel, Fasting; Future Adjustment disorder with anxious mood Comments: Patient still sees counselor every 2 weeks. Currently on no medications and declines need for them at this time. Mood stable. Follow-up in 6 months with me. Reduced visual acuity Comments: Patient uses glasses for myopia. Eye exam up-to-date. documented in this encounter Plan of Treatment Scheduled Orders Name Type Priority Associated Diagnoses Orde r Schedule Hepatic Function Panel Lab Routine Hypothyroidism, unspecified type Chronic pain of both knees Expected: 10/18/2024 (Approximate), Expires: 10/18/2025 Vitamin D, 25-Hydroxy, Total, Immunoassay Lab Routine Hypothyroidism, unspecified type Chronic pain of both knees Expected: 10/18/2024 (Approximate), Expires: 10/18/2025 Vitamin B12/Folate, Serum Panel Lab Routine Hypothyroidism, unspecified type Chronic pain of both knees Expected: 10/18/2024, Expires: 10/18/2025 TSH W/Reflex to FT4 Lab Routine Hypothyroidism, unspecified type Chronic pain of both knees Expected: 10/18/2024 (Approximate), Expires: 10/18/2025 Uric acid Lab Routine Hypothyroidism, unspecified type Chronic pain of both knees Expected: 10/18/2024 (Approximate), Expires: 10/18/2025 Sed Rate by Modified Westergren Lab Routine Hypothyroidism, unspecified type Chronic pain of both knees Expected: 10/18/2024, Expires: 10/18/2025 C-reactive Protein Lab Routine Hypothyroidism, unspecified type Chronic pain of both knees Expected: 10/18/2024 (Approximate), Expires: 10/18/2025 Basic Metabolic Panel, Fasting Lab Routine Hypothyroidism, unspecified type Chronic pain of both knees Expected: 10/18/2024 (Approximate), Expires: 10/18/2025 documented as of this encounter Procedures Procedure Name Priority Date/Time Associated Diagnosis Comments CBC WITH AUTO DIFFERENTIAL Routine 10/18/2024 11:58 AM EDT Hypothyroidism, unspecified type Chronic pain of both knees documented in this encounter Results * CBC auto differential (10/18/2024 11:58 AM EDT) White Blood Count 7.0 4.8 - 10.8 X10*3/uL [facility] Red Blood Count 5.53 4.60 - 5.80 X10*6/uL [facility] Hemoglobin 16.0 14.0 - 18.0 g/dl [facility] Hematocrit 48.4 42.0 - 52.0 % [facility] Mean Corpuscular Volume 87.5 80.0 - 98.0 fL [facility] Mean Corpuscular Hemoglobin 28.9 27.0 - 33.0 pg [facility] Mean Corpuscular HGB Conc 33.1 31.0 - 36.0 g/dl [facility] Red Cell Distribution Width 12.6 11.0 - 16.0 % [facility] Platelet Count 274 160 - 400 X10*3/uL [facility] Mean Platelet Volume 9.6 9.4 - 12.4 fL [facility] Neutrophils Percent Auto 64.2 45 - 73 % [facility] Imm Gran Pct Auto 0.3 0.0 - 0.4 % [facility] Lymphocytes Percent Auto 27.1 20 - 40 % [facility] Monocytes Percent Auto 7.4 2 - 11 % [facility] Eosinophils Percent Auto 0.3 0 - 4 % [facility] Basophils Percent Auto 0.7 0 - 2 % [facility] NRBC Pct Auto 0.0 0.0 - 0.2 /100WBC [facility] Neutrophils Absolute Auto 4.5 2.0 - 8.3 x10*3/uL [facility] Imm Gran Abs Auto 0.02 0.00 - 0.03 X10*3/uL [facility] Lymphocytes Absolute Auto 1.9 1.2 - 4.9 X10*3/uL [facility] Monocytes Absolute Auto 0.5 0.1 - 1.2 X10*3/uL [facility] Eosinophils Absolute Auto 0.0 0.0 - 0.4 X10*3/uL [facility] Basophils Absolute Auto 0.1 0.0 - 0.2 X10*3/uL [facility] NRBC Abs Auto 0.000 0.0 - 0.012 X10*3/uL [facility] Blood Venous blood specimen / Unknown 10/18/2024 11:58 AM EDT 10/18/2024 2:11 PM EDT us Magalys Frankel MD LAB BLOOD ORDERABLES Final Re sult [facility] [address] [place] [address] [phone] documented in this encounter Visit Diagnoses Diagnosis Hypothyroidism, unspecified type- Primary Chronic pain of both knees Adjustment disorder with anxious mood Adjustment disorder with anxiety Reduced visual acuity documented in this encounter Additional Health Concerns Assessment Noted Time PHQ-9 Depression Total Score: 8 10/19/19 25 11:25 AM EDT documented as of this encounter Care Teams Nip Wrapper Relationship Specialty Start Date End Date Magalys Frankel MD [address] [place] [id number] PCP - General Family Medicine 02/16/13 documented as of this encounter
[2024-10-18 14:13] LABS: MANUAL DIFF FLAG NO
[2024-10-18 14:22] LABS: Hematocrit 48.4 % (42.0-52.0); Hemoglobin 16.0 g/dl (14.0-18.0); Imm Gran Abs Auto 0.02 X10*3/uL (0.00-0.03); Imm Gran Pct Auto 0.3 % (0.0-0.4); Lymphocytes Absolute Auto 1.9 X10*3/uL (1.2-4.9); Mean Corpuscular HGB Conc 33.1 g/dl (31.0-36.0); Mean Corpuscular Hemoglobin 28.9 pg (27.0-33.0); Mean Corpuscular Volume 87.5 fL (80.0-98.0); NRBC Abs Auto 0.000 X10*3/uL (0.0-0.012); NRBC Pct Auto 0.0 /100WBC (0.0-0.2); Platelet Count 274 X10*3/uL (160-400); Red Blood Count 5.53 X10*6/uL (4.60-5.80); White Blood Count 7.0 X10*3/uL (4.8-10.8)
--- OUTSIDE RECORDS SUMMARY | 2024-10-18 14:25 | XMS_ITS | Encounter Summary ---
Author Organization [employer] Address [address] [facility] [address] [place] [address] Care Team Providers Care Paving Contractor Name Role Phone Magalys Frankel MD Primary Care Provider [phone] Encounter Details Date Type Department Care Team (Latest Contact Info) Description 10/18/2024 Travel Social History Tobacco Use Types Packs/Day Years Used Date Smoking Tobacco: Never Passive Smoke Exposure: Never Smokeless Tobacco: Never Depression Answer Date Recorded Patient Health Questionnaire-9 Score 8 10/18/2024 Patient Health Questionnaire-9 Score 8 10/18/2024 Last PHQ-9: Questionnaire Data Not on file 0 10/18/2024 Housing Stability Answer Date Recorded What is your housing situation today? I have chris monzon 10/18/[address] you [...] AM EDT documented as of this encounter Functional Status * Over the [...] 10/18/2024 11:25 AM Camila [place] MA * Feeling down, depressed, or hopeless Answer Date of Assessment Author Not at all 10/18/2024 11:25 AM Camila [place] MA * Trouble falling or staying asleep, or sleeping too much Answer Date of Assessment Author Not at all 10/18/2024 11:25 AM Camila [place] MA * Feeling tired or having little energy Answer Date of Assessment Author Nearly every day 10/18/2024 11:25 AM Camila Marley MA * Poor appetite or overeating Answer Date of Assessment Author More than half the days 10/18/2024 11:25 AM Camila Walker MA * Feeling bad about yourself - or that you are a failure or have let yourself or your family down Answer Date of Assessment Author Not at all 10/18/2024 11:25 AM Camila [place] MA * Trouble concentrating on things, such as reading the newspaper or watching television Answer Date of Assessment Author Not at all 10/18/2024 11:25 AM Camila [place] MA * Moving or speaking so slowly [...] 11:25 AM EDT Camila Sibley MA * Patient Health Questionnaire-9 Score Answer [...] Mora MA documented as of this encounter Plan of Treatment Not on file documented as of this encounter Visit Diagnoses Not on filedocumented in this encounter Additional Health Concerns Assessment Noted Time PHQ-9 Depression Total Score: 8 10/19/19 25 11:25 AM EDT documented as of this encounter Care Teams Paving Contractor Relationship Specialty Start Date End Date Magalys Frankel MD [address] [place] [phone] PCP - General Family Medicine 02/16/13 documented as of this encounter
--- OUTSIDE RECORDS SUMMARY | 2024-10-18 14:25 | XMS_ITS | Encounter Summary ---
Author Organization [employer] Address [address] [facility] [address] [place] [address] Care Team Providers Care Academic Hospitalist Name Role Phone Magalys Frankel MD Primary Care Provider [phone] Reason for Visit * Reason Onset Date Comments Nurse Triage 09/29/2023 Encounter Details Date Type Department Care Team ([facility] st Contact Info) Description 09/29/2023 Telephone [facility] [address] [place] [address] Magalys Frankel MD [address] [place] [address] Nurse Triage Social History Tobacco Use Types Packs/Day Years Used Date Smoking Tobacco: Never Passive Smoke Exposure: Never Smokeless Tobacco: Never Depression Answer Date Recorded Patient Health Questionnaire-9 Score 1 03/13/2022 Housing Stability Answer Date Recorded What is your housing situation today? I have chrisamauri monzon 12/15/[address] you [...] t he electric, gas, oil or water [employer] threatened to shut off services in your [...] documented as of this encounter Care Teams Academic Hospitalist Relationship Specialty Start Date End Date Magalys Frankel MD [address] [place] [address] PCP - General Family Medicine 02/16/13 documented as of this encounter
--- OUTSIDE RECORDS SUMMARY | 2024-10-18 14:25 | XMS_ITS | Clinical Summary ---
Author Organization [email or web address] Address [address] [facility] [address] [place] [address] Care Team Providers Care Bobbin Trucker Name Role Phone Magalys Frankel MD Primary Care Provider Allergies Active Allergy Reactions Criticality Noted Date Comments Cephalexin Rash Low 10/27/2011 Medications levothyroxine (Synthroid) 50 MCG tablet Take 1 tab orally daily every morning 90 tablet 1 5 Active hydrOXYzine pamoate (Vistaril) 25 MG capsule Take 1 capsule orally tid prn anxiety 30 capsule 3 4 10/19/19 25 Discontinu ed(Therapy completed) Active Problems Problem Noted Date Diagnosed Date Hypothyroidism 10/18/2024 Adjustment disorder with anxious mood 09/26/2020 Reduced visual acuity 11/05/2017 Encounters Date Type Department Care Team Description 10/18/2024 11:30 AM EDT Office Visit [facility] [address] [place] [address] Magalys Frankel MD Hypothyroidism, unspecified type (Primary Dx); Chronic pain of both knees; Adjustment disorder with anxious mood; Reduced visual acuity 10/18/2024 Travel 10/17/2024 Telephone [facility] [address] [place] [address] Magalys Frankel MD Chart Prep 09/29/2024 Telephone [facility] [address] [place] [address] Magalys Frankel MD Lab Orders from Last 3 Months Immunizations Immunization Administration Dates Next Due DTaP 12/23/2004, 2,02/18/2001,12/07,2000 [...] 08/26/2016,10/27/19 12 Moderna Covid-19 Vaccine 12+ 06/16/2020 OPV, Trivalent 12/23/2004, 2,2000,10/08 Pfizer Covid-19 Vaccine 12+ 07/14/2020 [...] 16 10/18/2024 11:25 AM EDT Oxygen Saturation 97% 06/16/2023 11:27 AM EDT Inhaled Oxygen Concentration - - Weight 62.1 kg (137 lb) 10/18/2024 11:25 AM EDT Height 177.8 cm (5' 10 ) 06/16/2023 11:27 AM EDT Body Mass Index 19.66 06/16/2023 11:27 AM EDT Plan of Treatment Health Maintenance Due Date Last Done Comments Family Planning (PISQ) 08/05/2015 Pneumococcal Vaccine: Pediatrics (0 to 5 Years) and At-Risk Patients (6 to 49) Years (1 of 2 - PCV) 08/05/2019 07/18/2002, 02/18/2001, 2000, Additional history exists DTaP/Tdap/Td Vaccines (7 - Td or Tdap) 10/26/2021 10/27/2011, 12/23/2004, 01/31/2002, Additional history exists COVID-19 Vaccine (3 - 2024- season) 2024 07/14/2020, 06/16/2020 Influenza Vaccine (#1) 2024 , 12/29/2018, 11/05/2017, Additional history exists Alcohol/Substance Use Screening 10/18/2025 10/18/2024 Depression Screening 10/18/2025 10/18/2024, 10/19/19 25 Disability Screening 10/18/2025 10/18/2024 SDOH Screening 10/18/2025 10/18/2024 Tobacco Screening 10/18/2025 10/18/2024 Zoster Vaccines (1 of 2) 2050 RSV [...] 06/16/2023, 08/15/2021 Hepatitis C Screening Completed 06/16/2023 Meningococcal B Vaccine Aged Out No l onger eligible based on patient's age to complete this topic RSV under 20 months Aged Out No longe r eligible based on patient's age to complete this topic Rotavirus Vaccines Aged Out No longer eligible based on patient's age to complete this topic Procedures Procedure Name Priority Date/Time Associated Diagnosis Comments CBC WITH AUTO DIFFERENTIAL Routine 10/18/2024 11:58 AM EDT Hypothyroidism, unspecified type Chronic pain of both knees HEPATITIS C AB W/REFL TO HCV RNA, QN, PCR Routine 06/16/2023 12:04 PM EDT Hypothyroidism, unspecified type Encounter for routine child health examination w/o abnormal findings HIV 1/2 ANTIGEN/ANTIBODY, FOURTH GENERATION W/RFL Routine 06/16/2023 12:04 PM EDT Hypothyroidism, unspecified type Encounter for routine child health examination w/o abnormal findings from Last 3 Months or Most Recently Relevant to Health Maintenance Results * CBC auto differential (10/18/2024 11:58 AM EDT) White Blood Count 7.0 4.8 - 10.8 X10*3/uL [facility] Red Blood Count 5.53 4.60 - 5.80 X10*6/uL [facility] Hemoglobin 16.0 14.0 - 18.0 g/dl [facility] Hematocrit 48.4 42.0 - 52.0 % [facility] Mean Corpuscular Volume 87.5 80.0 - 98.0 fL [facility] Mean Corpuscular Hemoglobin 28.9 27.0 - 33.0 pg [facility] Mean Corpuscular HGB Conc 33.1 31.0 - 36.0 g/dl [facility] Red Cell Distribution Width 12.6 11.0 - 16.0 % [facility] Platelet Count 274 160 - 400 X10*3/uL [facility] Mean Platelet Volume 9.6 9.4 - 12.4 fL [facility] Neutrophils Percent Auto 64.2 45 - 73 % [facility] Imm Gran Pct Auto 0.3 0.0 - 0.4 % [facility] Lymphocytes Percent Auto 27.1 20 - 40 % [facility] Monocytes Percent Auto 7.4 2 - 11 % [facility] Eosinophils Percent Auto 0.3 0 - 4 % [facility] Basophils Percent Auto 0.7 0 - 2 % [facility] NRBC Pct Auto 0.0 0.0 - 0.2 /100WBC [facility] Neutrophils Absolute Auto 4.5 2.0 - 8.3 x10*3/uL [facility] Imm Gran Abs Auto 0.02 0.00 - 0.03 X10*3/uL [facility] Lymphocytes Absolute Auto 1.9 1.2 - 4.9 X10*3/uL [facility] Monocytes Absolute Auto 0.5 0.1 - 1.2 X10*3/uL [facility] Eosinophils Absolute Auto 0.0 0.0 - 0.4 X10*3/uL [facility] Basophils Absolute Auto 0.1 0.0 - 0.2 X10*3/uL [facility] NRBC Abs Auto 0.000 0.0 - 0.012 X10*3/uL [facility] Blood Venous blood specimen / Unknown 10/18/2024 11:58 AM EDT 10/18/2024 2:11 PM EDT Magalys Frankel MD LAB BLOOD ORDERABLES Final Re sult Performing Organization Address [facility]/ZIP Co de Phone Number [facility] [address] [place] [phone] * Hepatitis C Antibody with Reflex to HCV, RNA, Quantitative, Real-Time PCR (06/16/2023 12:04 PM EDT) Hepatitis C Antibody Nonreactive Nonreactive [facility] Comment:Antibodies to HCV no t detected; does not exclude early acuteHCV infection. Blood Venous blood specimen / Unknown 06/16/2023 12:04 PM EDT 06/16/2023 2:19 PM EDT Magalys Frankel MD LAB BLOOD ORDERABLES Final Re sult Performing Organization Address [facility] Co de Phone Number [facility] [address] [place] [address] [phone] * HIV-1/2 Antigen and Antibodies, Fourth Generation, with Reflexes (06/16/2023 12:04 PM EDT) HIV AB/AG Nonreactive Nonreactive [facility] Comment:HIV-1 p24 Ag and/or HIV-1/HIV-2 Ab not detected.A test result that is nonreactive does not exclude thepossibility of exposure to or infection with HIV-1 and/orHIV-2. Nonreactive results in this assay for individualswith prior exposure to HIV-1 and/or HIV-2 may be due toantigen and antibody levels that are below the limit ofdetection of this assay.The [employer] HIV Ag/Ab Combo assay result andsupplemental assay results should be interpreted inconjunction with the patient's clinical presentation,history and other laboratory results. If the results areinconsistent with clinical evidence, additional testing issuggested to confirm the result. Blood Venous blood specimen / Unknown 06/16/2023 12:04 PM EDT 06/16/2023 2:19 PM EDT us Maaglys Frankel MD LAB BLOOD ORDERABLES Final Re sult [facility] [address] [place] [phone] [phone] from Last 3 Months or Most Recently Relevant to Health Maintenance Insurance [employer] C3 Care Teams Bobbin Trucker Relationship Specialty Start Date End Date Magalys Frankel MD [address] [place] [phone] PCP - General Family Medicine 02/16/13
--- OUTSIDE RECORDS SUMMARY | 2024-10-18 14:25 | XMS_ITS | Encounter Summary ---
Author Organization [employer] Address [address] [facility] [address] [place] [address] Care Team Providers Care Building Trades Instructor Name Role Phone Magalys Frankel MD Primary Care Provider [phone] Reason for Visit * Reason Onset Date Comments Chart Prep 10/17/2024 Encounter Details Date Type Department Care Team ([facility] st Contact Info) Description 10/17/2024 Telephone [facility] [address] [place], [place] [phone] Magalys Frankel MD [address] [place] [address] Chart Prep Social History Tobacco Use Types Packs/Day Years [...] encounter Miscellaneous Notes * Telephone Encounter - Camila Sanchez [place] - 10/17/2024 10:30 AM EDT Chart Prep Labs: not done Images: done Referrals: not applicable Vaccines due: PCV20 and Tdap Screenings: not applicable Overdue care gaps: SBIRT, SDOH, PHQ-9, Disability screen, and Tobacco documented in this encounter Plan of Treatment Not on file documented as of this encounter Visit Diagnoses Not on filedocumented in this encounter Additional Health Concerns Assessment Noted Time PHQ-9 Depression Total Score: 1 03/13/19 23 10:28 AM EST documented as of this encounter Care Teams Building Trades Instructor Relationship Specialty Start Date End Date Magalys Frankel MD [address] [place] [phone] PCP - General Family Medicine 02/16/13 documented as of this encounter
--- OUTSIDE RECORDS SUMMARY | 2024-10-18 14:25 | XMS_ITS | Encounter Summary ---
Author Organization [employer] Address [address] [facility] [address] [place] [address] Care Team Providers Care Rubber Tile Floor Layer Name Role Phone Magalys Frankel MD Primary Care Provider [phone] Encounter Details Date Type Department Care Team ([facility] st Contact Info) Description 12/25/2022 Telephone [facility] [address] [place], [place] [phone] Mari Brooks RN [address] [place] [address] Social History Tobacco Use Types Packs/Day Years [...] triage, spoke to pt. pt states seen [facility] on 12/24 and diagnosed with hypothyroid. [...] from pt returning call. Please contact at [phone] * Telephone Encounter - Mari Brooks RN [...] documented as of this encounter Care Teams Rubber Tile Floor Layer Relationship Specialty Start Date End Date Magalys Frankel MD [address] [place] [phone] PCP - General Family Medicine 02/16/13 documented as of this encounter
--- OUTSIDE RECORDS SUMMARY | 2024-10-18 14:25 | XMS_ITS | Encounter Summary ---
Author Organization [employer] Address [address] [facility] [address] [place] [address] Care Team Providers Care Assisted Sales Representative Name Role Phone Magalys Frankel MD Primary Care Provider [phone] Reason for Visit * Reason Comments Med Change Request Encounter Details Date Type Department Care Team ([facility] st Contact Info) Description 06/02/2023 Refill [facility] [address] [place] [address] Magalys Frankel MD [address] [place] [address] Social History Tobacco Use Types Packs/Day Years [...] t he electric, gas, oil or water [employer] threatened to shut off services in your [...] documented as of this encounter Care Teams Assisted Sales Representative Relationship Specialty Start Date End Date Magalys Frankel MD [address] [place] [address] PCP - General Family Medicine 02/16/13 documented as of this encounter
[2024-10-18 15:05] LABS: Alanine Aminotransferase 27 U/L (0-40); Albumin Level 5.1 g/dL (3.5-5.0); Alkaline Phosphatase 65 U/L (39-117); Anion Gap 14 (12-20); Aspartate Amino Transferase 34 U/L (5-37); Blood Urea Nitrogen 9 mg/dL (9-16); Calcium 9.7 mg/dL (8.4-10.2); Carbon Dioxide 29 mmol/L (22-29); Chloride 103 mmol/L (96-108); Estimated Glomerular Filt Rate > 60; Potassium 4.5 mmol/L (3.3-5.1); Sodium 141 mmol/L (135-145); Total Protein 7.5 g/dL (6.5-8.0); Uric Acid 4.9 mg/dL (3.4-7.0)
[2024-10-18 15:21] LABS: Folate 12.6 ng/mL (> or = 4.0); Vitamin B12 529 pg/mL (200-900)
[2024-10-18 15:42] LABS: Free T4 (Free Thyroxine) 0.98 ng/dL (0.71-1.85)
== END 2024-10-18 11:57 | disposition home or self-care (01) ==
LOC: HO.CHCLDS 11:56
PROVIDERS: Visit Provider Pediatrics
DX: E03.9 Hypothyroidism, unspecified (principal); M25.561 Pain in right knee; M25.562 Pain in left knee; G89.29 Other chronic pain
CPT/HCPCS: 36415; 80048; 80076; 82306; 82607; 82746; 84439; 84443; 84550; 85025; 85652; 86140